=== PATIENT | female | born 1945 | race Caucasian/White ===

== ENCOUNTER 2018-12-16 06:37 | Inpatient (IN) | payer MEDICARE, MEDICAID ==
[2018-12-16] VITALS (12 sets, daily range): BP systolic 149–191; BP diastolic 53–86
[~2018-12-16] VITALS: Ht 149.9 cm; Wt 76.4 kg
[~2018-12-16 06:37] MED LIST: CELE-193 PO; DIAZ5TAB PO; ESTR0.6261 PO; FAMO-1 PO; METF500T PO; NAPR-1154 PO; NORCO10T PO; PRED20TA PO; SIMV20TA5 PO; VAL5T PO
[2018-12-16 07:27] LABS: BASOPHILS % (AUTO) 0.6 % (0-1); EOSINOPHILS # (AUTO) 0.3 X10'3 (0-0.9); EOSINOPHILS % (AUTO) 5.5 % (0-6); HEMATOCRIT 42.1 % (35.0-45.0); HEMOGLOBIN 14.2 g/dl (12.0-16.0); MEAN CORPUSCULAR HEMOGLOBIN 30.3 PG (27.0-31.0); MEAN CORPUSCULAR HGB CONC 33.6 g/dL (33.0-36.5); MEAN PLATELET VOLUME 7.8 FL (7.4-10.4); MONOCYTES # (AUTO) 0.5 X10'3 (0-0.9); MONOCYTES % (AUTO) 8.4 % (2-12); NEUTROPHILS # (AUTO) 2.8 X10'3 (1.8-7.7); NEUTROPHILS % (AUTO) 49.5 % (42-75); PLATELET COUNT 256 X10'3 (140-440); RED BLOOD COUNT 4.68 X10'6 (4.20-5.60); RED CELL DISTRIBUTION WIDTH 13.4 % (11.5-14.5); WHITE BLOOD COUNT 5.6 X10'3 (4.5-11.0)
[2018-12-16 07:37] LABS: PARTIAL THROMBOPLASTIN TIME 25 SECONDS (22-32)
[2018-12-16 07:47] LABS: ANION GAP 12 (8-16); BILIRUBIN,TOTAL 0.4 MG/DL (0.1-1.0); BLOOD UREA NITROGEN 11 MG/DL (7-18); BUN/CREATININE RATIO 14.1 (6.6-38.0); CALCIUM 8.3 MG/DL (8.5-10.1); CHLORIDE 106 MMOL/L (99-107); CREATININE 0.78 MG/DL (0.40-0.90); GLUCOSE 180 MG/DL (70-104); POTASSIUM 3.9 MMOL/L (3.5-5.1); SODIUM 142 MMOL/L (135-145); TOTAL CARBON DIOXIDE 24.2 MMOL/L (24-32); TOTAL PROTEIN 6.4 G/DL (6.4-8.2); eGFR 73 ML/MIN
[2018-12-16 07:48] LABS: ALANINE AMINOTRANSFERASE 17 U/L (12-78); ALBUMIN 3.2 G/DL (3.4-5.0); ALKALINE PHOSPHATASE 58 IU/L (46-116); ASPARTATE AMINO TRANSFERASE 14 U/L (10-37)
[2018-12-16] MEDS ORDERED: magnesium hydroxide 30ml (MOM) UD suspension PO PRN (09:05)
[2018-12-16] MEDS ORDERED: glucagon, human recombinant 1mg kit SUBCUT PRN (09:05)
[2018-12-16] MEDS ORDERED: aspirin 325mg tablet PO ONE (09:05)
[2018-12-16] MEDS ORDERED: dextrose ORAL solution 15 GM/59 ML bottle PO PRN ×2 (09:05)
[2018-12-16] MEDS ORDERED: metoprolol tartrate 1mg/ml inj IV PRN (09:05)
[2018-12-16] MEDS ORDERED: mag hydrox/Alum hydrox/simeth 30ml oral suspension PO PRN (09:05)
[2018-12-16] MEDS ORDERED: potassium Cl 20 mEq SR tablet PO PRN ×2 (09:05)
[2018-12-16] MEDS ORDERED: bisacodyl 10mg suppository rectal RC PRN (09:05)
[2018-12-16] MEDS ORDERED: acetaminophen 650mg rectal suppository RC PRN (09:05)
[2018-12-16] MEDS ORDERED: morphine 2 MG/ML inj. syringe IV PRN ×2 (09:05)
[2018-12-16] MEDS ORDERED: ondansetron/PF 4mg/2ml inj IV PRN (09:05)
[2018-12-16] MEDS ORDERED: nitroGLYCERIN 0.4mg SUBLingual tab SL PRN (09:05)
[2018-12-16] MEDS ORDERED: diphenhydrAMINE 25mg capsule PO PRN (09:05)
[2018-12-16] MEDS ORDERED: acetaminophen 325mg tablet PO PRN ×2 (09:05)
[2018-12-16] MEDS ORDERED: MESSAGE TO PHARMACY PO ONE (09:05)
[2018-12-16] MEDS ORDERED: aminophylline 250mg/10ml inj. IV PRN (09:05)
[2018-12-16] MEDS ORDERED: dextrose 50%-water 50ml dispensing syringe IV PRN ×2 (09:05)
[2018-12-16] MEDS: K and/or MAG REPLACEMENT MC SCH (09:05)
[2018-12-16] MEDS ORDERED: potassium CL 10mEq/100ml bag 100 ML IV PRN ×2 (09:05)
[2018-12-16] MEDS ORDERED: HYDROcodone/acetaminophen 5mg/325mg tablet PO PRN (09:05)
[2018-12-16] MEDS ORDERED: regadenoson 0.4mg/5ml syringe IV ONE (09:05)
[2018-12-16] MEDS ORDERED: aspirin 81mg tab.chew PO ONE (09:15)
[2018-12-16 09:24] LABS: CLARITY,URINE CLEAR (Clear); COLOR,URINE YELLOW (Yellow); GLUCOSE, URINE 250 mg/dl (Neg); KETONES,URINE NEGATIVE (Neg); LEUKOCYTE ESTERASE ,URINE NEGATIVE (Neg); NITRITES, URINE NEGATIVE (Neg); OCCULT BLOOD,URINE NEGATIVE (Neg); PROTEIN,URINE NEGATIVE (Neg); UROBILINOGEN,URINE 0.2 E.U/dL (0.2-1.0)
[2018-12-16 09:26] LABS: UA COLLECTION TYPE CLN CATCH MIDSTREAM
[2018-12-16] MEDS: normal saline 1000ml 1,000 ML IV SCH ×2 (09:40→13:03)
[2018-12-16 09:44] LABS: HEMOGLOBIN A1C 6.7 % (4.5-6.2)
--- NOTE | 2018-12-16 11:32 | NUR ---
Pt arrived to department from ER. Pt injected for lexiscan. Pt to be DARTED and go for russ
[2018-12-16] MEDS ORDERED: OMEP-50 PO (11:55)
[2018-12-16] MEDS ORDERED: SITA1TAB2 PO (11:55)
[2018-12-16] MEDS ORDERED: PREG100C PO (11:55)
[2018-12-16] MEDS ORDERED: SIMV40TA4 PO (11:56)
--- NOTE | 2018-12-16 12:04 | NUR ---
MRSA swab to lab, pt to sergey in
--- NOTE | 2018-12-16 14:00 | NUR ---
Pt returned from stess test, pt back on monitor.
--- NOTE | 2018-12-16 14:45 | NUR ---
DM consult: Patient's A1c is 6.7; DM ed not warranted at this time. Will continue to follow. Addendum: 12/16/18 at [address] Amended: Links added.
--- NOTE | 2018-12-16 15:42 | NUR ---
PAGER ID: [phone] MESSAGE: [phone] FRANKLIN NIGEL. BP 166/77, Lowest since admit. BP running 178/75, 171/79. Would you like to order something for her HTN? Thank you. 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
--- NOTE | 2018-12-16 15:59 | NUR ---
PAGER ID: [phone] MESSAGE: 313-NIGEL REID. PT IS REQUESTING IMMODIUM. SHE HAD 3 LIQUID STOOLS IN THE PAST HOUR. THANK YOU. ALVARO- MEDIA BUYER EXT [phone]
[2018-12-16] MEDS ORDERED: loperamide 2mg capsule PO PRN (16:10)
[2018-12-16] MEDS: lisinopril 10 MG tablet PO SCH (16:10)
[2018-12-16] MEDS ORDERED: carVEDilol 12.5mg tablet PO ONE (16:15)
--- NOTE | 2018-12-16 16:19 | NUR ---
Spoke with Philip in infection control. He stated that this pt should be tested for C-diff, but he is not concerned that we should isolate yet. He said to get a sample to lab, and when we get results, we can move her if needed.
--- NOTE | 2018-12-16 18:00 | NUR ---
Patient in room MED 313. I have received report from Art, RN and had the opportunity to ask questions and assume patient care.
[2018-12-16] MEDS: carVEDilol 12.5mg tablet PO SCH (19:30)
[2018-12-16] MEDS: pregabalin 25mg capsule PO SCH (19:31)
[2018-12-16] MEDS: heparin, porcine 5000 units/ml vial SQ SCH (19:32)
[2018-12-16] MEDS: HYDROcodone/acetaminophen 10/325mg tab PO PRN (19:49)
[2018-12-16] MEDS ORDERED: PREGABALIN 100 MG PO SCH (20:00)
[2018-12-16] MEDS: atorvastatin 20mg tablet PO SCH (20:56)
[2018-12-16] MEDS ORDERED: temazepam 15mg capsule PO PRN (21:00)
[2018-12-16] MEDS: insulin glargine (Lantus) pen - multi-dose SQ SCH (21:12)
[2018-12-17] VITALS (16 sets, daily range): BP systolic 107–183; BP diastolic 36–85
[2018-12-17] MEDS ORDERED: hydrALAZINE 20mg/ml inj. IV PRN (02:25)
[2018-12-17] MEDS ORDERED: hyDRALAzine 10mg tablet PO PRN (02:25)
--- NOTE | 2018-12-17 04:22 | NUR ---
Patient's blood pressure upon standing went from 146/54 to 180/85. Called Dr. Monk to obtain a PRN blood pressure order because this patient's BP earlier in the night around 1800 was 191/69. I was able to give her the schedule dose of coreg for this blood pressure which brought her down to 153/53. After obtaining the order for prn hydralazine for SBP >150, I re-took the patient's BP and it was 142/62 at 0237. I will continue to monitor this patient.
[2018-12-17 04:56] LABS: BASOPHILS # (AUTO) 0.1 X10'3 (0-0.2); BASOPHILS % (AUTO) 1.4 % (0-1); EOSINOPHILS # (AUTO) 0.3 X10'3 (0-0.9); EOSINOPHILS % (AUTO) 5.5 % (0-6); HEMATOCRIT 38.6 % (35.0-45.0); HEMOGLOBIN 13.3 g/dl (12.0-16.0); LYMPHOCYTES # (AUTO) 2.3 X10'3 (1.1-4.8); LYMPHOCYTES % (AUTO) 44.4 % (21-51); MEAN CORPUSCULAR HEMOGLOBIN 31.1 PG (27.0-31.0); MEAN CORPUSCULAR HGB CONC 34.5 g/dL (33.0-36.5); MEAN CORPUSCULAR VOLUME 90.1 FL (78-98); MEAN PLATELET VOLUME 8.2 FL (7.4-10.4); MONOCYTES # (AUTO) 0.5 X10'3 (0-0.9); MONOCYTES % (AUTO) 9.3 % (2-12); NEUTROPHILS % (AUTO) 39.4 % (42-75); PLATELET COUNT 243 X10'3 (140-440); RED BLOOD COUNT 4.28 X10'6 (4.20-5.60); RED CELL DISTRIBUTION WIDTH 13.2 % (11.5-14.5); WHITE BLOOD COUNT 5.1 X10'3 (4.5-11.0)
[2018-12-17 05:11] LABS: ALANINE AMINOTRANSFERASE 18 U/L (12-78); ALBUMIN 2.9 G/DL (3.4-5.0); ALKALINE PHOSPHATASE 48 IU/L (46-116); ANION GAP 9 (8-16); ASPARTATE AMINO TRANSFERASE 10 U/L (10-37); BILIRUBIN,TOTAL 0.2 MG/DL (0.1-1.0); BLOOD UREA NITROGEN 12 MG/DL (7-18); CALCIUM 8.4 MG/DL (8.5-10.1); CHLORIDE 106 MMOL/L (99-107); CHOL/HDL RATIO 5.1 (0.00-4.99); CHOLESTEROL 197 MG/DL (0-200); CREATININE 0.75 MG/DL (0.40-0.90); GLUCOSE 146 MG/DL (70-104); HDL CHOLESTEROL 39 MG/DL (35-60); LDL CHOLESTEROL 68 MG/DL (50-100); MAGNESIUM 1.8 MG/DL (1.5-2.4); PHOSPHORUS 3.9 MG/DL (2.3-4.5); POTASSIUM 3.5 MMOL/L (3.5-5.1); SODIUM 141 MMOL/L (135-145); TOTAL PROTEIN 5.9 G/DL (6.4-8.2); TRIGLYCERIDES 758 MG/DL (20-135); eGFR 76 ML/MIN
[2018-12-17] MEDS: normal saline 1000ml 1,000 ML IV SCH ×3 (05:41→17:45)
[2018-12-17] MEDS: K and/or MAG REPLACEMENT MC SCH (08:00)
[2018-12-17] MEDS: aspirin 81mg tab.chew PO SCH (08:20)
[2018-12-17] MEDS: lisinopril 10 MG tablet PO SCH (08:21)
[2018-12-17] MEDS: pregabalin 25mg capsule PO SCH ×2 (08:21→20:15)
[2018-12-17] MEDS: pantoprazole 40mg Tablet.DR PO SCH (08:21)
[2018-12-17] MEDS: heparin, porcine 5000 units/ml vial SQ SCH ×2 (08:22→20:15)
[2018-12-17] MEDS: carVEDilol 12.5mg tablet PO SCH ×2 (08:22→20:14)
[2018-12-17] MEDS: insulin Lispro (HumaLOG) vial - multi-dose SQ SCH ×2 (10:14→20:19)
[2018-12-17] MEDS: HYDROcodone/acetaminophen 10/325mg tab PO PRN ×2 (10:18→16:23)
[2018-12-17] MEDS ORDERED: fentaNYL/PF 50MCG/1 ML 2ML syringe ONE (13:21)
[2018-12-17] MEDS ORDERED: midazolam 2 mg/2 ml injection ONE (13:21)
[2018-12-17] MEDS ORDERED: LIDOcaine 1% (10mg/ml)w/preservative injection 20ml MDV ONE (13:21)
[2018-12-17] MEDS ORDERED: iohexol 350MG/ML 100ml bottle IV ONE (13:21)
[2018-12-17] MEDS ORDERED: iohexol 350 MG/ML 50ML vial IV ONE (13:21)
--- NOTE | 2018-12-17 13:27 | NUR ---
Pt to sanitation laborer
[2018-12-17] MEDS ORDERED: diphenhydrAMINE 50 mg/ml inj ONE (13:45)
--- NOTE | 2018-12-17 14:34 | NUR ---
Pt returned from lab coordinator, pt supine with frequent VS. Pt site is stable at this time
--- NOTE | 2018-12-17 14:44 | NUR ---
PAGER ID: [phone] MESSAGE: 313: FRANKLIN WEATHERS heart cath (-) :D nurse ART [id number]
[2018-12-17] MEDS ORDERED: ondansetron/PF 4mg/2ml inj IV PRN (14:50)
[2018-12-17] MEDS ORDERED: OXAZEpam 15mg capsule PO PRN (14:50)
[2018-12-17] MEDS ORDERED: proCHLORperazine 10 MG/2 ml inj IV PRN (14:50)
[2018-12-17] MEDS: atorvastatin 20mg tablet PO SCH (20:14)
--- NOTE | 2018-12-17 21:44 | NUR ---
Patient in room MED 313. I have received report from Art RN and had the opportunity to ask questions and assume patient care.
[2018-12-17] MEDS: insulin glargine (Lantus) pen - multi-dose SQ SCH (22:06)
[2018-12-18] MEDS: normal saline 1000ml 1,000 ML IV SCH ×2 (00:50→08:19)
[2018-12-18 02:00] VITALS: BP_SYST 101; BP_SYST 120; BP_SYST 150; BP_DIAS 41; BP_DIAS 62; BP_DIAS 64
--- NOTE | 2018-12-18 06:01 | NUR ---
Problems reprioritized. Patient report given, questions answered & plan of care reviewed with Pat RN .
[2018-12-18 06:19] LABS: BASOPHILS # (AUTO) 0.1 X10'3 (0-0.2); BASOPHILS % (AUTO) 1.1 % (0-1); EOSINOPHILS # (AUTO) 0.3 X10'3 (0-0.9); EOSINOPHILS % (AUTO) 5.3 % (0-6); HEMATOCRIT 38.1 % (35.0-45.0); LYMPHOCYTES # (AUTO) 2.2 X10'3 (1.1-4.8); LYMPHOCYTES % (AUTO) 41.5 % (21-51); MEAN CORPUSCULAR HEMOGLOBIN 30.8 PG (27.0-31.0); MEAN CORPUSCULAR HGB CONC 34.1 g/dL (33.0-36.5); MEAN CORPUSCULAR VOLUME 90.4 FL (78-98); MEAN PLATELET VOLUME 8.2 FL (7.4-10.4); MONOCYTES # (AUTO) 0.4 X10'3 (0-0.9); MONOCYTES % (AUTO) 7.6 % (2-12); NEUTROPHILS # (AUTO) 2.4 X10'3 (1.8-7.7); NEUTROPHILS % (AUTO) 44.5 % (42-75); PLATELET COUNT 232 X10'3 (140-440); RED BLOOD COUNT 4.22 X10'6 (4.20-5.60); WHITE BLOOD COUNT 5.3 X10'3 (4.5-11.0)
[2018-12-18 06:30] VITALS: BP 125/58
[2018-12-18 06:41] LABS: ALANINE AMINOTRANSFERASE 17 U/L (12-78); ALBUMIN 2.6 G/DL (3.4-5.0); ALBUMIN/GLOBULIN RATIO 0.9 (1.1-1.5); ALKALINE PHOSPHATASE 48 IU/L (46-116); ANION GAP 11 (8-16); BILIRUBIN,TOTAL 0.2 MG/DL (0.1-1.0); BLOOD UREA NITROGEN 17 MG/DL (7-18); BUN/CREATININE RATIO 18.9 (6.6-38.0); CALCIUM 7.8 MG/DL (8.5-10.1); CHLORIDE 107 MMOL/L (99-107); GLUCOSE 175 MG/DL (70-104); MAGNESIUM 1.7 MG/DL (1.5-2.4); PHOSPHORUS 4.2 MG/DL (2.3-4.5); SODIUM 140 MMOL/L (135-145); TOTAL CARBON DIOXIDE 21.9 MMOL/L (24-32); TOTAL PROTEIN 5.5 G/DL (6.4-8.2); eGFR 62 ML/MIN
[2018-12-18 06:44] LABS: POTASSIUM 3.6 MMOL/L (3.5-5.1)
--- NOTE | 2018-12-18 06:45 | NUR ---
Reviewed and agreed with Praful Paredes RN's charting.
[2018-12-18 07:09] LABS: ASPARTATE AMINO TRANSFERASE 9 U/L (10-37)
[2018-12-18] MEDS: HYDROcodone/acetaminophen 10/325mg tab PO PRN (07:14)
[2018-12-18] MEDS: K and/or MAG REPLACEMENT MC SCH (07:54)
[2018-12-18] MEDS: pantoprazole 40mg Tablet.DR PO SCH (08:03)
[2018-12-18] MEDS: heparin, porcine 5000 units/ml vial SQ SCH (08:03)
[2018-12-18] MEDS: carVEDilol 12.5mg tablet PO SCH (08:04)
[2018-12-18] MEDS: aspirin 81mg tab.chew PO SCH (08:05)
[2018-12-18 08:06] VITALS: BP_SYST 125
[2018-12-18] MEDS: lisinopril 10 MG tablet PO SCH (08:06)
[2018-12-18] MEDS: pregabalin 25mg capsule PO SCH (08:09)
[2018-12-18] MEDS: insulin Lispro (HumaLOG) vial - multi-dose SQ SCH (08:12)
[2018-12-18] MEDS ORDERED: LISI10TA4 PO (11:14)
[2018-12-18] MEDS ORDERED: ASPI-1265 PO (11:14)
[2018-12-18] MEDS ORDERED: CARV-50 PO (11:14)
[2018-12-21] MEDS ORDERED: FENO145T25 PO (12:40)
[2018-12-21] MEDS ORDERED: OMEG1CAP PO (12:40)
== END 2018-12-18 12:00 | disposition home health service (06) | DRG 287 ==
LOC: ER 06:38 → MED 3N 11:17 → CMPBEDREQ 19:40
PROVIDERS: ADMIT Family Medicine; ATTEND Family Medicine
PROC: 4A023N7 Measurement of Cardiac Sampling and Pressure, Left Heart, Percutaneous Approach (ICD-10-PCS; principal; 2018-12-17)
PROC: B2111ZZ Fluoroscopy of Multiple Coronary Arteries using Low Osmolar Contrast (ICD-10-PCS; 2018-12-17)
PROC: B2151ZZ Fluoroscopy of Left Heart using Low Osmolar Contrast (ICD-10-PCS; 2018-12-17)
PROC: B41F1ZZ Fluoroscopy of Right Lower Extremity Arteries using Low Osmolar Contrast (ICD-10-PCS; 2018-12-17)
PROC: B41C1ZZ Fluoroscopy of Pelvic Arteries using Low Osmolar Contrast (ICD-10-PCS; 2018-12-17)
DX: I20.0 Unstable angina (principal); J44.1 Chronic obstructive pulmonary disease with (acute) exacerbation; K21.9 Gastro-esophageal reflux disease without esophagitis; E78.00 Pure hypercholesterolemia, unspecified; E78.1 Pure hyperglyceridemia; E78.5 Hyperlipidemia, unspecified; F41.9 Anxiety disorder, unspecified; E11.40 Type 2 diabetes mellitus with diabetic neuropathy, unspecified; M54.9 Dorsalgia, unspecified; G89.4 Chronic pain syndrome; I10 Essential (primary) hypertension; I70.0 Atherosclerosis of aorta; J44.9 Chronic obstructive pulmonary disease, unspecified; R19.7 Diarrhea, unspecified; I34.1 Nonrheumatic mitral (valve) prolapse; M47.9 Spondylosis, unspecified; Z79.52 Long term (current) use of systemic steroids; Z79.899 Other long term (current) drug therapy; Z88.0 Allergy status to penicillin; Z88.2 Allergy status to sulfonamides; Z88.1 Allergy status to other antibiotic agents; Z88.6 Allergy status to analgesic agent; Z88.8 Allergy status to other drugs, medicaments and biological substances; Z79.82 Long term (current) use of aspirin; Z79.84 Long term (current) use of oral hypoglycemic drugs; Z80.42 Family history of malignant neoplasm of prostate; Z82.0 Family history of epilepsy and other diseases of the nervous system; Z82.49 Family history of ischemic heart disease and other diseases of the circulatory system; Z87.891 Personal history of nicotine dependence; Z90.49 Acquired absence of other specified parts of digestive tract; Z90.710 Acquired absence of both cervix and uterus
CPT/HCPCS: 36415; 71045; 76937; 78452; 80053; 80061; 81003; 82948; 83036; 83735; 84100; 84484; 85025; 85610; 85730; 87045; 87046; 87081; 87324; 87449; 89055; 93005; 93017; 93306; 93458; 96360; 99152; 99153; 99285; A4620; A6258; A9500; C1760; C1769; G0378; J1200; J1644; J1815; J2001; J2250; J2785; J3010; J7030; Q9967

== ENCOUNTER 2018-12-22 03:55 | Emergency (ER) | payer MEDICARE, MEDICAID ==
[~2018-12-22] VITALS: Ht 149.9 cm; Wt 76.0 kg
[~2018-12-22 03:55] MED LIST changes: +ASPI-1265 PO; +CARV-50 PO; -CELE-193 PO; -DIAZ5TAB PO; -FAMO-1 PO; +FENO145T25 PO; +LISI10TA4 PO; -METF500T PO; -NAPR-1154 PO; +OMEG1CAP PO; +OMEP-50 PO; -PRED20TA PO; +PREG100C PO; -SIMV20TA5 PO; +SIMV40TA4 PO; +SITA1TAB2 PO; -VAL5T PO
[2018-12-22] MEDS ORDERED: ipratropium/albuterol 3ml nebule NEB ONE (04:35)
[2018-12-22 04:55] LABS: BASOPHILS # (AUTO) 0.1 X10'3 (0-0.2); BASOPHILS % (AUTO) 1.1 % (0-1); EOSINOPHILS # (AUTO) 0.3 X10'3 (0-0.9); EOSINOPHILS % (AUTO) 5.2 % (0-6); HEMATOCRIT 39.4 % (35.0-45.0); HEMOGLOBIN 13.2 g/dl (12.0-16.0); LYMPHOCYTES # (AUTO) 2.2 X10'3 (1.1-4.8); LYMPHOCYTES % (AUTO) 34.1 % (21-51); MEAN CORPUSCULAR HEMOGLOBIN 30.5 PG (27.0-31.0); MEAN CORPUSCULAR HGB CONC 33.6 g/dL (33.0-36.5); MEAN CORPUSCULAR VOLUME 90.8 FL (78-98); MEAN PLATELET VOLUME 8.4 FL (7.4-10.4); MONOCYTES # (AUTO) 0.6 X10'3 (0-0.9); MONOCYTES % (AUTO) 8.8 % (2-12); NEUTROPHILS # (AUTO) 3.3 X10'3 (1.8-7.7); NEUTROPHILS % (AUTO) 50.8 % (42-75); PLATELET COUNT 253 X10'3 (140-440); RED BLOOD COUNT 4.34 X10'6 (4.20-5.60); RED CELL DISTRIBUTION WIDTH 13.3 % (11.5-14.5); WHITE BLOOD COUNT 6.6 X10'3 (4.5-11.0)
[2018-12-22 05:01] LABS: ALANINE AMINOTRANSFERASE 18 U/L (12-78); ALBUMIN 3.1 G/DL (3.4-5.0); ALKALINE PHOSPHATASE 55 IU/L (46-116); ANION GAP 9 (8-16); ASPARTATE AMINO TRANSFERASE 9 U/L (10-37); BILIRUBIN,TOTAL 0.4 MG/DL (0.1-1.0); BLOOD UREA NITROGEN 11 MG/DL (7-18); BUN/CREATININE RATIO 12.8 (6.6-38.0); CALCIUM 8.4 MG/DL (8.5-10.1); CHLORIDE 106 MMOL/L (99-107); CREATININE 0.86 MG/DL (0.40-0.90); GLUCOSE 172 MG/DL (70-104); POTASSIUM 3.7 MMOL/L (3.5-5.1); SODIUM 142 MMOL/L (135-145); TOTAL CARBON DIOXIDE 27.5 MMOL/L (24-32); TOTAL PROTEIN 6.2 G/DL (6.4-8.2); eGFR 65 ML/MIN
[2018-12-22 05:05] LABS: D-DIMER 2.99 MG/L FEU (0-0.50)
[2018-12-22 05:10] LABS: MAGNESIUM 1.6 MG/DL (1.5-2.4)
[2018-12-22] MEDS ORDERED: iohexol 350MG/ML 100ml bottle IV ONE (05:18)
[2018-12-22] MEDS ORDERED: PRED20TA PO (05:53)
[2018-12-22] MEDS ORDERED: LEVO500T89 PO (06:05)
[2018-12-22 06:12] VITALS: BP 145/65
== END 2018-12-22 06:42 | disposition home or self-care (01) ==
LOC: ER 03:56
DX: J40 Bronchitis, not specified as acute or chronic (principal); R10.11 Right upper quadrant pain; E78.00 Pure hypercholesterolemia, unspecified; E11.9 Type 2 diabetes mellitus without complications; G89.29 Other chronic pain; Z90.710 Acquired absence of both cervix and uterus; Z90.49 Acquired absence of other specified parts of digestive tract; Z98.890 Other specified postprocedural states; Z87.891 Personal history of nicotine dependence; Z88.0 Allergy status to penicillin; Z88.2 Allergy status to sulfonamides; Z88.5 Allergy status to narcotic agent; Z79.82 Long term (current) use of aspirin; Z79.899 Other long term (current) drug therapy
CPT/HCPCS: 36415; 71045; 71275; 74177; 80053; 83735; 83880; 84145; 84484; 85025; 85379; 93005; 94640; 94760; 99284; Q9967

== ENCOUNTER 2019-06-07 05:47 | Emergency (ER) | payer MEDICARE, MEDICAID ==
[~2019-06-07] VITALS: Ht 149.9 cm; Wt 72.3 kg
[~2019-06-07 05:47] MED LIST changes: +SIMV-45 PO; -SIMV40TA4 PO
[2019-06-07 06:15] LABS: BASOPHILS # (AUTO) 0.1 X10'3 (0-0.2); BASOPHILS % (AUTO) 1.5 % (0-1); EOSINOPHILS # (AUTO) 0.4 X10'3 (0-0.9); EOSINOPHILS % (AUTO) 6.7 % (0-6); HEMOGLOBIN 14.5 g/dl (12.0-16.0); LYMPHOCYTES # (AUTO) 2.9 X10'3 (1.1-4.8); LYMPHOCYTES % (AUTO) 50.1 % (21-51); MEAN CORPUSCULAR HEMOGLOBIN 29.9 PG (27.0-31.0); MEAN CORPUSCULAR HGB CONC 33.7 g/dL (33.0-36.5); MONOCYTES # (AUTO) 0.5 X10'3 (0-0.9); MONOCYTES % (AUTO) 7.9 % (2-12); NEUTROPHILS % (AUTO) 33.8 % (42-75); PLATELET COUNT 275 X10'3 (140-440); RED BLOOD COUNT 4.83 X10'6 (4.20-5.60); RED CELL DISTRIBUTION WIDTH 13.4 % (11.5-14.5); WHITE BLOOD COUNT 5.8 X10'3 (4.5-11.0)
[2019-06-07 06:32] LABS: ALANINE AMINOTRANSFERASE 16 U/L (12-78); ALBUMIN 3.3 G/DL (3.4-5.0); ALKALINE PHOSPHATASE 59 IU/L (46-116); ANION GAP 5 (8-16); ASPARTATE AMINO TRANSFERASE 9 U/L (10-37); BILIRUBIN,TOTAL 0.2 MG/DL (0.1-1.0); BLOOD UREA NITROGEN 12 MG/DL (7-18); BUN/CREATININE RATIO 15.4 (6.6-38.0); CALCIUM 8.5 MG/DL (8.5-10.1); CHLORIDE 106 MMOL/L (99-107); CREATININE 0.78 MG/DL (0.40-0.90); GLUCOSE 160 MG/DL (70-104); POTASSIUM 4.4 MMOL/L (3.5-5.1); SODIUM 141 MMOL/L (135-145); TOTAL PROTEIN 6.5 G/DL (6.4-8.2); eGFR 73 ML/MIN
[2019-06-07 09:28] VITALS: BP 179/88
== END 2019-06-07 09:32 | disposition home or self-care (01) ==
LOC: ER 05:48
DX: R07.89 Other chest pain (principal); E78.00 Pure hypercholesterolemia, unspecified; E11.9 Type 2 diabetes mellitus without complications; G89.29 Other chronic pain; Z90.49 Acquired absence of other specified parts of digestive tract; Z90.710 Acquired absence of both cervix and uterus; Z98.890 Other specified postprocedural states; Z88.0 Allergy status to penicillin; Z88.2 Allergy status to sulfonamides; Z88.1 Allergy status to other antibiotic agents; Z79.82 Long term (current) use of aspirin; Z79.899 Other long term (current) drug therapy
CPT/HCPCS: 36415; 71045; 80053; 83880; 84484; 85025; 93005; 99285

== ENCOUNTER 2019-10-19 05:16 | Day surgery (SDC) | payer BC, MEDICAID ==
[2019-10-12 14:15] LABS: BASOPHILS # (AUTO) 0.1 X10'3 (0-0.2); BASOPHILS % (AUTO) 0.9 % (0-1); EOSINOPHILS # (AUTO) 0.2 X10'3 (0-0.9); EOSINOPHILS % (AUTO) 2.6 % (0-6); LYMPHOCYTES # (AUTO) 2.7 X10'3 (1.1-4.8); LYMPHOCYTES % (AUTO) 36.4 % (21-51); MEAN CORPUSCULAR HEMOGLOBIN 30.3 PG (27.0-31.0); MEAN CORPUSCULAR HGB CONC 33.5 g/dL (33.0-36.5); MEAN CORPUSCULAR VOLUME 90.2 FL (78-98); MEAN PLATELET VOLUME 8.3 FL (7.4-10.4); MONOCYTES # (AUTO) 0.6 X10'3 (0-0.9); MONOCYTES % (AUTO) 8.2 % (2-12); NEUTROPHILS # (AUTO) 3.9 X10'3 (1.8-7.7); NEUTROPHILS % (AUTO) 51.9 % (42-75); PRE OP HEMATOCRIT 43.2 % (35.0-45.0); PRE OP HEMOGLOBIN 14.5 g/dL (12.0-16.0); PRE OP PLATELET COUNT 269 X10'3 (140-440); RED BLOOD COUNT 4.79 X10'6 (4.20-5.60); RED CELL DISTRIBUTION WIDTH 13.5 % (11.5-14.5)
[2019-10-12 14:37] LABS: ALBUMIN 3.6 G/DL (3.4-5.0); ALBUMIN/GLOBULIN RATIO 1.1 (1.1-1.5); ALKALINE PHOSPHATASE 60 IU/L (46-116); BLOOD UREA NITROGEN 15 MG/DL (7-18); BUN/CREATININE RATIO 14.6 (6.6-38.0); CHLORIDE 105 MMOL/L (99-107); CREATININE 1.03 MG/DL (0.40-0.90); PRE OP ALT 15 U/L (30-65); PRE OP ANION GAP 7 (8-16); PRE OP AST 12 U/L (10-37); PRE OP BILIRUB, TOTAL 0.4 MG/DL (0.0-1.0); PRE OP GLUCOSE 128 MG/DL (70-104); PRE OP POTASSIUM 4.1 MMOL/L (3.4-5.1); PRE OP SODIUM 142 MMOL/L (135-145); TOTAL CARBON DIOXIDE 30.5 MMOL/L (24-32); TOTAL PROTEIN 6.9 G/DL (6.4-8.2); eGFR 53 ML/MIN
[~2019-10-19] VITALS: Ht 149.9 cm; Wt 76.8 kg
[2019-10-19] VITALS (12 sets, daily range): BP systolic 125–164; BP diastolic 62–92
[~2019-10-19 05:16] MED LIST changes: -CARV-50 PO; +CHOL400T57 PO; -FENO145T25 PO; +FURO20TA4 PO; -LISI10TA4 PO; -NORCO10T PO; -OMEG1CAP PO; -OMEP-50 PO; +ringers solution, lacted 1,000 ML IV SCH
[2019-10-19] MEDS ORDERED: famotidine 20mg tablet PO ONE (05:30)
[2019-10-19] MEDS ORDERED: VANCOMYCIN 1,500MG inj. 1,500 MG in normal saline 500ml IV soln 500 ML IV ONE (05:30)
[2019-10-19] MEDS ORDERED: LIDOcaine 1% (10mg/ml) 2ml vial ONE (05:48)
[2019-10-19] MEDS ORDERED: BUPIVAcaine/PF 2.5mg/ml (0.25%) 10ml vial ONE (06:37)
[2019-10-19] MEDS ORDERED: LIDOcaine 1% 30ml preserv. free vial ONE (06:37)
[2019-10-19] MEDS ORDERED: BUPIVAcaine/PF 2.5 mg/ml (0.25%) 30ml vial ONE (06:37)
[2019-10-19] MEDS ORDERED: BUPIVACAINE liposomal/PF 13.3 MG/ML vial IM ONE (06:38)
[2019-10-19] MEDS ORDERED: ondansetron/PF 4mg/2ml inj IV PRN (07:15)
[2019-10-19] MEDS ORDERED: morphine 4 MG/ML inj SYRINge IV PRN (07:15)
[2019-10-19] MEDS ORDERED: proCHLORperazine 10 MG/2 ml inj IV PRN (07:15)
[2019-10-19] MEDS ORDERED: ringers solution, lacted 1,000 ML IV SCH (07:15)
[2019-10-19] MEDS ORDERED: morphine 2 MG/ML inj. syringe IV PRN (07:15)
[2019-10-19] MEDS ORDERED: meperidine/PF 25mg/ml syringe IV PRN ×2 (07:15)
[2019-10-19] MEDS ORDERED: acetaminophen 1,000mg/100ml IV 100 ML IV PRN (07:15)
[2019-10-19] MEDS ORDERED: sevoflurane 250ml liquid IH ONE (07:56)
[2019-10-19] MEDS ORDERED: neostigmine methylsulfate 1 MG/ML 10ml vial ONE (07:56)
[2019-10-19] MEDS ORDERED: glycopyrrolate 0.2mg/ml inj ONE (07:56)
[2019-10-19] MEDS ORDERED: fentaNYL/PF 50MCG/1 ML 2ML syringe ONE (08:01)
[2019-10-19] MEDS ORDERED: midazolam 2 mg/2 ml injection ONE (08:01)
[2019-10-19] MEDS ORDERED: LIDOcaine 2% (20mg/ml) 5ml vial ONE (08:37)
[2019-10-19] MEDS ORDERED: propofol inj 20 ML IV ONE (08:37)
[2019-10-19] MEDS ORDERED: dexamethasone sod phosphate 4mg/ml inj. ONE (08:37)
[2019-10-19] MEDS ORDERED: ondansetron/PF 4mg/2ml inj ONE (08:37)
[2019-10-19] MEDS ORDERED: rocuronium 10mg/ml inj IV ONE (08:37)
--- NOTE | 2019-10-19 09:44 | NUR ---
Received from OR via [facility] , accompanied by Anesthesiologist TANGELA and report given by Anesthesiolgist. PATIENT WITH 20G PIV IN LEFT HAND RUNNING LR AT 100. COMPLAINS OF NAUESA - MEDICATED FOR THIS. WILL CONTINUE TO ASSESS. DENIES PAIN AT THIS TIME. 3 ABDOMINAL BANDAIDS PRESENT AND ARE CDI. VSS. 10L MASK ON WITH 100% SATURATIONS. Addendum: 10/19/19 at 0955 by Abhinav Costa RN, RN Amended: Links added.
[2019-10-19] MEDS ORDERED: oxyCODONE/APAP 5-325mg tablet PO PRN (09:55)
--- NOTE | 2019-10-19 10:54 | NUR ---
Report called to receiving nurse. Transferred via GURNEY WITH ONE BAG OF Belongings . Special Issues communicated to receiving nurse JOANN. LATHAM. PATIENT PIV INTACT. VOIDED PRIOR TO TRANSFER TO PASS UNIT. CARE TURNED OVER. Addendum: 10/19/19 at 1103 by Abhinav Costa RN RN Amended: Links added.
--- NOTE | 2019-10-19 11:00 | NUR ---
RECEIVED PT FROM PACU. AWAKE SKIN WARM AND DRY HOB ELEVATED, ABD SOFT DSG DI, PAIN MINIMAL AT THIS TIME. NAUSEA SUBSIDING. VS WNL.
--- NOTE | 2019-10-19 12:56 | NUR ---
AWAKE VS WNL, TOLERATES LIQUIDS, NO NAUSEA, PAIN MINIMAL WHEN IN BED. UP TO BATHROOM TO VOID 4 TIME, LARGE AMOUNTS. DSG DI, DISCH INSTR GIVEN TO PT AND UNDERSTOOD. PAIN MED SCRIPT GIVEN TO PT. HOME WITH BOYFRIENIsi BHARDWAJ.
== END 2019-10-19 12:59 | disposition home or self-care (01) ==
LOC: PAS 05:16
PROVIDERS: ATTEND Surgery
DX: K43.2 Incisional hernia without obstruction or gangrene (principal); K21.9 Gastro-esophageal reflux disease without esophagitis; E78.00 Pure hypercholesterolemia, unspecified; G89.29 Other chronic pain; I25.10 Atherosclerotic heart disease of native coronary artery without angina pectoris; G62.9 Polyneuropathy, unspecified; Z90.49 Acquired absence of other specified parts of digestive tract; Z90.710 Acquired absence of both cervix and uterus; Z98.1 Arthrodesis status; Z98.890 Other specified postprocedural states; Z87.891 Personal history of nicotine dependence; Z88.1 Allergy status to other antibiotic agents; Z88.0 Allergy status to penicillin; Z88.2 Allergy status to sulfonamides; Z88.8 Allergy status to other drugs, medicaments and biological substances; Z79.899 Other long term (current) drug therapy; Z11.59 Encounter for screening for other viral diseases; Z79.82 Long term (current) use of aspirin; Z80.9 Family history of malignant neoplasm, unspecified; Z82.49 Family history of ischemic heart disease and other diseases of the circulatory system
CPT/HCPCS: 36415; 49656; 64488; 80053; 82948; 85025; 93005; C1781; C9290; J0131; J0780; J1100; J2001; J2250; J2270; J2405; J2704; J2710; J3010; J3370; J3490; J7040; S2900; U0003; A4215; A4618; J7120

== ENCOUNTER 2024-06-14 02:18 | Emergency (ER) | payer BC, MEDICAID ==
[~2024-06-14] VITALS: Ht 149.9 cm; Wt 68.2 kg
[~2024-06-14 02:18] MED LIST changes: -ringers solution, lacted 1,000 ML IV SCH
[2024-06-14 03:03] LABS: BILIRUBIN,URINE NEGATIVE (Neg); CLARITY,URINE CLOUDY (Clear); COLOR,URINE YELLOW (Yellow); GLUCOSE, URINE 100 mg/dl (Neg); KETONES,URINE NEGATIVE (Neg); LEUKOCYTE ESTERASE ,URINE MODERATE (Neg); NITRITES, URINE NEGATIVE (Neg); OCCULT BLOOD,URINE NEGATIVE (Neg); PROTEIN,URINE NEGATIVE (Neg); UROBILINOGEN,URINE 0.2 E.U/dL (0.2-1.0)
[2024-06-14 03:05] LABS: UA COLLECTION TYPE CLN CATCH MIDSTREAM
[2024-06-14 03:26] LABS: BACTERIA,URINE 4+ /HPF (Neg); RBC,URINE NONE SEEN /HPF (0-2); SQUAMOUS EPITHELIAL CELL,UR FEW /LPF (FEW)
[2024-06-14 03:27] LABS: WBC,URINE 50-100 /HPF (0-4)
[2024-06-14] MEDS ORDERED: CEFD300C3 PO (03:33)
[2024-06-14] MEDS: cephalexin 250mg capsule PO ONE (03:39)
[2024-06-14 03:41] VITALS: BP 155/60; PULSE 82; RESP 18; TEMP 98.7; O2SAT 97
== END 2024-06-14 03:42 | disposition home or self-care (01) ==
LOC: ER 02:20
DX: N39.0 Urinary tract infection, site not specified (principal); R19.7 Diarrhea, unspecified; E11.9 Type 2 diabetes mellitus without complications; E78.00 Pure hypercholesterolemia, unspecified; G89.29 Other chronic pain; M54.9 Dorsalgia, unspecified; Z88.0 Allergy status to penicillin; Z88.1 Allergy status to other antibiotic agents; Z88.5 Allergy status to narcotic agent; Z88.2 Allergy status to sulfonamides; Z88.8 Allergy status to other drugs, medicaments and biological substances; Z79.82 Long term (current) use of aspirin; Z79.899 Other long term (current) drug therapy; Z90.710 Acquired absence of both cervix and uterus; Z90.49 Acquired absence of other specified parts of digestive tract; Z60.2 Problems related to living alone
CPT/HCPCS: 81001; 87077; 87088; 87186; 99283